=== PATIENT | male | born 1975 | race Caucasian/White ===

== ENCOUNTER → 2021-05-12 | Outpatient (CLI) | payer BC ==
--- NOTE | 2021-05-12 16:29 | MR ---
EXAMINATION TYPE: MR shoulder RT wo con DATE OF EXAM: 05/12/2021 COMPARISON: Plain film on 10/02/2021 HISTORY: Rt shoulder pain TECHNIQUE: Multiplanar, multisequence imaging of the right shoulder is performed without contrast. FINDINGS: There is some motion on the exam. Rotator Cuff: Abnormal signal is present within the rotator cuff, partial full-thickness tear is susp ected on coronal image #16, sagittal image #17 and courses in an oblique plane, partial undersurface tear suspected Acromioclavicular Joint: Hypertrophic arthropathy changes of the acromioclavicular joint are present, there is mass effect on the musculotendinous junction of supraspinatus. There is a distal acromial s pur. Fluid signal is present in the subacromial subdeltoid bursa. Glenohumeral Joint: Intact Labrum: The labrum appears grossly intact given limitation of non-arthrogram study. Biceps Tendon: The long head of biceps is in normal location within bicipital groove, some fluid sign al is present along the tendon. Bone marrow signal: No focal abnormal marrow signal is appreciated. Other: No additional significant abnormality is appreciated. IMPRESSION: Partial full-thickness tear of the rotator cuff as described, correlate for impingement
== END | disposition home or self-care (01) ==
LOC: RADMRIMAIN 11:09
PROVIDERS: ATTEND Orthopaedic Surgery
DX: M75.101 Unspecified rotator cuff tear or rupture of right shoulder, not specified as traumatic (principal)

== ENCOUNTER 2021-07-07 06:04 | Day surgery (SDC) | payer BC ==
[2021-07-04 15:30] VITALS: BMI 44.3
--- NOTE | 2021-07-06 10:46 | HP ---
HISTORY AND PHYSICAL CHIEF COMPLAINT: Right shoulder pain. HISTORY OF PRESENT ILLNESS: The patient is a 45-year-old [id number] morgan who presents with progressive right shoulder pain after an injury in the fall of last year. He notes he was working on his car when he hurt his right shoulder. He has been having pain with overhead use and at night ever since. He has tried a home stretching regimen along with medications, without much relief. He has also had previous injections. He notes daily pain that limits him. PAST MEDICAL HISTORY: Significant for hypertension, obesity. PAST SURGICAL HISTORY: Significant for appendectomy. CURRENT MEDICATIONS: Lisinopril and Tylenol. ALLERGIES: HE DENIES DRUG ALLERGIES. FAMILY HISTORY: Significant for cancer. SOCIAL HISTORY: Significant for tobacco use along with social alcohol use and marijuana use. REVIEW OF SYSTEMS: Sixteen-point review of systems otherwise is reviewed and is noncontributory. PHYSICAL EXAMINATION: On examination, patient is approximately 5 feet 11 inches, 315 pounds of endomorphic habitus. HEENT exam is nonfocal. Neck is supple. On examination of his right shoulder, he is tender about the anterior subacromial space. He has moderate crepitus. Active range of motion: Forward elevation 155 degrees, external rotation with the arm at side 55 degrees, internal rotation to T12. Motor strength 5-/5 for external rotation with arm at side, 4+/5 for abduction. Impingement test, Neer test and Speed test are positive. His distal neurovascular exam appears intact in the right upper extremity. MRI report of the right shoulder shows evidence of a tear of the rotator cuff involving the supraspinatus with some retraction. IMPRESSION: 1. Right rotator cuff tear, symptomatic. 2. Right proximal bicipital tendinosis. RECOMMENDATIONS: I talked to the patient at length regarding his condition along with treatment options. At this point he has tried conservative measures without much relief. After thorough discussion, he opts to proceed with surgery. We will plan to proceed with arthroscopic evaluation with probable subacromial decompression, rotator cuff repair and possible biceps tenotomy. Risks and benefits were discussed at length in layman's terms. We will likely perform that as an outpatient procedure. MMODL / IJN: [id number] /
[~2021-07-07 06:04] MED LIST: DEXAMETHASONE SOD PHOSPHATE 4 MG/ML 1 ML VIAL IV ONE; HYDROmorphone 0.5 MG/0.5 ML SYRINGE IVP PRN; LACTATED RINGERS 1,000 ML IV SCH; LIDOCAINE 1% (10MG/ML) FOR IV START INTRADERMA PRN; MIDAZOLAM 2 MG/2 ML VIAL IV PRN; ONDANSETRON 4 MG/2 ML VIAL IVP ONE; ceFAZolin 3 GM in SODIUM CHLORIDE 0.9% 100 ML IVPB PRN
[2021-07-07 06:32] VITALS: RESP 16
[2021-07-07] MEDS ORDERED: PHENYLEPHRINE-0.9% NACL SYG 1,000 MCG/10 ML SYRINGE ONE (07:45)
[2021-07-07] MEDS ORDERED: GLYCOPYRROLATE 0.2 MG/ML 2 ML VIAL ONE (07:45)
[2021-07-07] MEDS ORDERED: ROCURONIUM 10 MG/ML (5 ML VIAL) IV ONE (07:45)
[2021-07-07] MEDS ORDERED: ROPIVACAINE 5 MG/ML 30 ML VIAL ONE (07:45)
[2021-07-07] MEDS ORDERED: NEOSTIGMINE 1 MG/ML 10 ML VIAL ONE (07:45)
[2021-07-07] MEDS ORDERED: SUCCINYLCHOLINE CHLORIDE VIAL 200 MG/10 ML VIAL IV ONE (07:45)
[2021-07-07] MEDS ORDERED: PROPOFOL 10 MG/ML 20 ML VIAL IV ONE (07:45)
[2021-07-07] MEDS ORDERED: ePHEDrine 50 MG/ML 1 ML VIAL ONE (07:45)
[2021-07-07] MEDS ORDERED: MIDAZOLAM 2 MG/2 ML VIAL ONE (07:45)
[2021-07-07] MEDS ORDERED: LIDOCAINE 1% INJ 10MG/ML (20 ML MDV) ONE (07:45)
[2021-07-07] MEDS ORDERED: DEXAMETHASONE SOD PHOSPHATE 4 MG/ML 1 ML VIAL ONE (07:45)
[2021-07-07] MEDS ORDERED: fentaNYL (PF) 50 MCG/ML 2 ML AMP ONE (07:45)
[2021-07-07] MEDS ORDERED: EPINEPHrine (PF) 1 ML in SODIUM CHLORIDE 0.9% IRRIGATIO 3,000 ML IRRIGATION ONE ×8 (07:50)
[2021-07-07] MEDS ORDERED: LACTATED RINGERS 1,000 ML IV ONE (08:50)
[2021-07-07 09:10] VITALS: TEMP 97.6
--- NOTE | 2021-07-07 09:11 | P.OP ---
Date of Procedure: 07/07/21 Preoperative Diagnosis: Symptomatic right rotator cuff tear Postoperative Diagnosis: 1 1/2 cm right rotator cuff tear Procedure(s) Performed: Right shoulder arthroscopic subacromial decompression/rotator cuff repair Implants: Arthrex 4.75 mm swivel lock anchor x 1, 5.5 mm swivel lock anchor 1 Anesthesia: vannessa ABRAHAM Surgeon: Johnny Regalado Data Warehousing Architect #1: Juan Luis Weber Estimated Blood Loss (ml): 10 Pathology: none sent Condition: stable Disposition: PACU Indications for Procedure: The patient's a 45-year-old male presents with progressive right shoulder pain despite previous conservative measures. A discussion of the risks and benefits of operative intervention versus continued conservative measures. The patient opted to proceed with surgery. Operative risks to include infection, neurovascular injury, development of blood clots, possible tendon rerupture, possible need for subsequent procedures was discussed. Informed consent was obtained. Operative Findings: As below Description of Procedure: The patient was brought to the operating room, and after induction of general anesthesia was placed in a beachchair position. A preoperative interscalene block was placed for postoperative analgesia. I examined the right shoulder. There was no gross block to passive motion or gross glenohumeral instability. The right upper extremity was prepped and draped in normal fashion. The bony outlines the acromion, distal clavicle, and coracoid process were outlined with a skin marker. The glenohumeral joint was inflated with 50 mL of saline utilizing a spinal needle from posterior approach. A posterior portal was made through a 5 mm skin incision 1 cm medial and inferior to the posterior lateral border time. A blunt trocar was used to easily into the joint. Diagnostic arthroscopy was performed. An anterior portal was made just lateral to the coracoid process entering the joint above the subscapularis tendon. The subscapularis tendon appeared to be intact. Anterior labrum was intact. The inferior recess was inspected. The posterior labrum was intact. The biceps and its anchor appear to be intact. On inspection the rotator cuff, there was a full-thickness tear involving the middle portion of the supraspinatus. The arthroscope was placed into the subacromial space. A lateral portal was made 2 centimeters inferior to the anterior lateral border of the acromion. The rotator cuff was then mobilized with a traction suture. This was then easily brought back to the greater tuberosity. The soft tissue on the undersurface of the acromion was debrided with a motorized shaver and electrocautery clearly defining the anterior medial and lateral borders as well as the distal clavicle. An anterior inferior acromioplasty was performed with a motorized davey starting anterolateral, then extending this posteriorly, then extending this medially. I converted to a flat acromion and this was verified in the posterior and lateral viewing portals. The greater tuberosity was lightly decorticating with a shaver down to a bleeding bony surface. An accessory superior lateral portal was made just off the lateral edge of the acromion for anchor placement. One anchor was placed just off the articular surface of the appropriate starting awl. A 4.75 mm anchors preloaded with #2 fiber tape was placed. Good purchase was obtained. These fiber tapes were then passed the rotator cuff with a scorpion suture passer. A fiber link was placed in the central portion of the rotator cuff tear for additional fixation. A lateral 5.5 mm swivel lock anchor was placed after appropriately tensioning the sutures with good purchase. Final arthroscopic view showed adequate compression at the footprint. The arthroscope was then removed. The portals were closed with simple 3-0 nylon sutures. A sterile dressing was applied in addition to a sling. The patient was then awoken from general anesthesia and transferred to recovery room in good condition. Blood loss was estimated at 10 mL. No complications were incurred. Sponge and needle counts were correct in the case. Juan Luis REICH assisted and the major components of the case to include arm positioning, anchor placement, and rotator cuff repair.
[2021-07-07 10:17] VITALS: BP 133/79; PULSE 71
--- NOTE | 2021-07-09 20:24 | P.ANPRN ---
Procedure Note - Anesthesia - Nerve Block Performed Right Interscalene Single Time Out Performed: Yes Date of Procedure: 07/07/21 Procedure Start Time: :01 Procedure Stop Time: 07:08 Location of Patient: PreOp Indication: Acute Post-Operative Pain, Requested by Surgeon Sedation Type: Sedate with meaningful contact maintained Preparation: Sterile Prep Position: Supine Needle Types: Pajunk Needle Gauge: 21 Ultrasound used to visualize needle placement: Yes Ultrasound used to observe medication spread: Yes Blood Aspirated: No Pain Paresthesia on Injection Noted: No Resistance on Injection: Normal Image Stored and Saved: Yes Events: Uneventful and Well Tolerated (ropi .5% 25cc plus dexamethasone 4mg)
== END 2021-07-07 10:40 | disposition home or self-care (01) ==
LOC: OR 06:04
PROVIDERS: ATTEND Orthopaedic Surgery
DX: S46.011A Strain of muscle(s) and tendon(s) of the rotator cuff of right shoulder, initial encounter (principal); W19.XXXA Unspecified fall, initial encounter; Y93.89 Activity, other specified; M75.21 Bicipital tendinitis, right shoulder; I10 Essential (primary) hypertension; Z79.899 Other long term (current) drug therapy; Z80.9 Family history of malignant neoplasm, unspecified; E66.01 Morbid (severe) obesity due to excess calories; Z68.42 Body mass index [BMI] 45.0-49.9, adult; F17.210 Nicotine dependence, cigarettes, uncomplicated; Z90.49 Acquired absence of other specified parts of digestive tract; G89.18 Other acute postprocedural pain
CPT/HCPCS: 29827; 29826; 64415; 76942; C1713 ×3; C1894; J2250; J0330; J1100; J2710; J0690; J2405; J0171; J2001; J3010; J2795; J2370; J2704

== ENCOUNTER 2024-05-08 09:12 | Day surgery (SDC) | payer BC, OTHER ==
[2024-05-06 10:47] VITALS: BMI 41.1
[2024-05-08 09:55] VITALS: RESP 16; TEMP 97.8
[2024-05-08] MEDS: IV FLUID CONTINUATION 1,000 ML IV ONE (09:58)
[2024-05-08] MEDS: LACTATED RINGERS 1,000 ML IV SCH (09:58)
[2024-05-08] MEDS ORDERED: LIDOCAINE 1% INJ 10MG/ML (20 ML MDV) ONE (10:41)
[2024-05-08] MEDS ORDERED: PROPOFOL 10 MG/ML 20 ML VIAL IV ONE (10:41)
--- NOTE | 2024-05-08 11:06 | P.PCN ---
Date of Procedure: 05/08/24 Procedure(s) Performed: BRIEF HISTORY: Patient is a 48-year-old pleasant white male scheduled for an elective colonoscopy as a part of screening for colon cancer. PROCEDURE PERFORMED: Colonoscopy with snare polypectomy. PREOPERATIVE DIAGNOSIS: Screening for colon cancer. IV sedation per Anesthesia. PROCEDURE: After informed consent was obtained, the patient, was brought into the endoscopy unit. IV sedation was administered by Anesthesia under continuous monitoring. Digital rectal examination was normal. Initially the Olympus CF-160 flexible video colonoscope was then inserted in the rectum, gradually advanced into the cecum without any difficulty. Careful examination was performed as the scope was gradually being withdrawn. Ileocecal valve and the appendiceal orifice were visualized and appeared normal. Prep was excellent. Mucosa of the cecum, ascending colon, transverse colon, descending colon, appeared normal. In the sigmoid colon there was a 6 mm sessile polyp that was removed by cold snare polypectomy. Rest of the sigmoid colon, and rectum appeared normal. Retroflexion was performed in the rectum and no lesions were seen. The patient tolerated the procedure well. IMPRESSION: 6 mm sigmoid colon polyp status post cold snare polypectomy Rest of the colon appeared normal RECOMMENDATIONS: Findings of this examination were discussed with the patient as well as his family. He was advised to follow with the biopsy results. If the biopsy reveals adenoma he can have repeat colonoscopy in 5 years.
[2024-05-08 11:27] VITALS: BP 142/91; PULSE 60
== END 2024-05-08 11:41 | disposition home or self-care (01) ==
LOC: ORWHC2ENDO 09:12
PROVIDERS: ATTEND Internal Medicine Gastroenterology
DX: Z12.11 Encounter for screening for malignant neoplasm of colon (principal); D12.5 Benign neoplasm of sigmoid colon; I10 Essential (primary) hypertension; M19.90 Unspecified osteoarthritis, unspecified site; F12.90 Cannabis use, unspecified, uncomplicated; Z79.899 Other long term (current) drug therapy; Z87.891 Personal history of nicotine dependence
CPT/HCPCS: 88305; 45385; J2003; J2704